=== PATIENT | male | born 1965 | race African-American/Black ===

== ENCOUNTER 2020-04-09 11:34 | Emergency (ER) | payer OTHER ==
[~2020-04-09] VITALS: Ht 182.9 cm; Wt 86.2 kg
[~2020-04-09 11:34] MED LIST: IBUPROFEN 600600 M1 PO
[2020-04-09 12:53] LABS: ABSOLUTE NEUTROPHILS 5.7 thou/uL (1.4-8.2); BASOPHILS 0.7 % (0.0-2.0); EOSINOPHILS 0.8 % (0.0-3.0); HEMOGLOBIN 13.9 gm/dL (14.0-18.0); MCH 28.2 pg (26.0-34.0); MCHC 33.1 g/dL (28.0-37.0); MCV 85.4 fL (80.0-100.0); MONOCYTES 12.7 % (1.0-8.0); PLATELET COUNT 307 thou/uL (150-400); POLYS 70.8 % (36.0-66.0); RBC 4.92 mil/uL (4.50-6.00); RDW 15.5 % (10.5-14.5); WBC 8.1 thou/uL (4.0-11.0)
[2020-04-09 13:02] LABS: CALCIUM 9.1 mg/dL (8.5-10.1); CREATININE 1.4 mg/dL (0.7-1.3); POTASSIUM 3.3 mmol/L (3.5-5.1)
[2020-04-09 13:02] LABS: URINE BLOOD 3+ (Negative); URINE GLUCOSE-RANDOM* NEGATIVE (Negative); URINE KETONES NEGATIVE (Negative); URINE LEUKOCYTES-REFLEX TRACE (Negative); URINE NITRITE-REFLEX NEGATIVE (Negative); URINE PROTEIN (DIPSTICK) 2+ (Negative); URINE SPECIFIC GRAVITY 1.025 (1.005-1.035)
[2020-04-09 13:06] LABS: URINE CLARITY TURBID; URINE COLOR RED
[2020-04-09 13:09] LABS: ALBUMIN 3.9 g/dL (3.4-5.0); TOTAL BILIRUBIN 0.7 mg/dL (0.2-1.0); TOTAL PROTEIN 7.3 g/dL (6.4-8.2)
[2020-04-09 13:09] LABS: ICTOTEST (BILI CONFIRMATORY) Negative (Negative); URINE BILIRUBIN NEGATIVE (Negative)
[2020-04-09 13:17] LABS: CASTS None Seen /LPF (None Seen); SQUAMOUS 0-3 Few /LPF (0-3); URINE RBC >20 Many /HPF (0-2); URINE WBC-REFLEX 6-15 Few /HPF (0-5)
[2020-04-09 13:18] LABS: BACTERIA-REFLEX None Seen /HPF (None Seen); CRYSTALS None Seen /LPF (None Seen)
[2020-04-09 15:40] VITALS: BP 154/106
== END 2020-04-09 15:42 | disposition home or self-care (01) ==
LOC: ER 11:34
PROVIDERS: Emergency Medicine
DX: R31.0 Gross hematuria (principal); F17.210 Nicotine dependence, cigarettes, uncomplicated; I10 Essential (primary) hypertension
CPT/HCPCS: 50455; 56815